=== PATIENT | male | born 1935 | race Caucasian/White ===

== ENCOUNTER 2019-10-12 15:30 | Inpatient (IN) | payer OTHER ==
[~2019-10-12] VITALS: Ht 172.7 cm; Wt 71.7 kg
--- NOTE | 2019-10-12 15:30 | NUR ---
iv line started blood drawn and sent to lab.
--- NOTE | 2019-10-12 15:30 | NUR ---
pt dax caitlin home to er bed 08. per ems report, worsening cough and dyspnea for the past 3 days. no fever endorse. 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 gowned and placed on monitor. stable vitals. awaitingt md barnes.
--- NOTE | 2019-10-12 15:47 | NUR ---
dr espana at bedside for eval.
[2019-10-12 16:05] LABS: BASOPHILS % (AUTO) 0.5 % (0.0-2.0); HEMATOCRIT 44 % (39-51); HEMOGLOBIN 14.2 g/dL (13.5-17.5); LYMPHOCYTES # (AUTO) 0.8 /CMM (0.8-4.8); LYMPHOCYTES % (AUTO) 11.4 % (20.0-44.0); MEAN CORPUSCULAR HGB CONC 32 g/dl (31.0-36.0); MEAN CORPUSCULAR VOLUME 88 fL (80-96); MONOCYTES # (AUTO) 0.8 /CMM (0.1-1.30); MONOCYTES % (AUTO) 11.2 % (2.0-12.0); NEUTROPHILS # (AUTO) 5.2 /CMM (1.8-8.9); NEUTROPHILS % (AUTO) 74.9 % (43.0-81.0); PLATELET COUNT (AUTO) 256 /CMM (150-450); RED BLOOD CELL COUNT(AUTO) 4.96 MIL/uL (4.5-6.0)
[2019-10-12 16:14] LABS: CALCIUM, SERUM 9.2 mg/dL (8.5-10.1); CARBON DIOXIDE 34 mmol/L (21-32); CHLORIDE 99 mmol/L (98-107); CREATININE 0.9 mg/dL (0.6-1.3); GLUCOSE 133 mg/dL (74-106); POTASSIUM 3.9 mmol/L (3.5-5.1); SODIUM SERUM 138 mmol/L (136-145); UREA NITROGEN, BLOOD 24 mg/dL (7-18)
[2019-10-12 16:25] LABS: ALANINE AMINOTRANSFERASE 26 U/L (12-78); ALBUMIN 3.1 g/dL (3.4-5.0); ALKALINE PHOSPHATASE 80 U/L (46-116); ASPARTATE AMINOTRANSFERASE 17 U/L (15-37); BILIRUBIN,DIRECT 0.1 mg/dL (0.0-0.2); BILIRUBIN,TOTAL 0.3 mg/dL (0.2-1.0); TOTAL PROTEIN, SERUM 7.9 g/dL (6.4-8.2)
[2019-10-12 16:26] LABS: ABG BASE EXCESS 2.7 mmol/L; ABG OXYGEN SATURATION 92.6 % (92.0-98.5); ABG PCO2 39.2 mmHg (35.0-45.0); ABG PH 7.451 (7.350-7.450); ABG PO2 64.2 mmHg (75.0-100.0); AaDO2 38.6 mmHg; COHb 0.5 % (0.5-1.5); MetHb 0.3 % (0.0-1.5); O2Hb 91.9 % (94.0-97.0); SITE, ABG Right Radial; VENT MODE, BG ROOM AIR
[2019-10-12 16:35] LABS: C-REACTIVE PROTEIN 12.6 mg/dL (0.0-0.9)
[2019-10-12] MEDS ORDERED: CT SWABBABLE VALVE TRANS SET 1 EA INFUS.SET MC ONE (16:55)
[2019-10-12] MEDS ORDERED: IV NS 0.9% 250 ML IV ONE (16:55)
[2019-10-12] MEDS ORDERED: IOHEXOL-350 100 ML VIAL IV ONE (16:55)
[2019-10-12] MEDS ORDERED: VANCOMYCIN 1 GM in IV D5W 250 ML IV ONE (17:30)
[2019-10-12] MEDS ORDERED: CEFEPIME 1 GM in IV D5W 50 ML IV ONE (17:30)
--- NOTE | 2019-10-12 17:45 | NUR ---
IRIS- DAUGHTER AND A [phone]
--- NOTE | 2019-10-12 17:50 | NUR ---
[facility]ED [facility], AWAITING CALL BACK FROM
[2019-10-12] MEDS ORDERED: LIDOCAINE 2% JEL UROJET 10 ML MM ONE (17:52)
[2019-10-12 18:30] LABS: APPEARANCE,URINE Slightly Cloudy (CLEAR); BILIRUBIN,URINE Negative (NEGATIVE); BLOOD, URINE Large Ery/uL (NEGATIVE); COLOR,URINE Yellow (YELLOW); KETONES,URINE Negative (NEGATIVE); LEUKOCYTE ESTERASE ,URINE Negative (NEGATIVE); NITRITE, URINE Negative (NEGATIVE); PH,URINE 5.5 (5.0-8.0); PROTEIN,URINE 30 mg/dl (NEGATIVE); UGLUCOSE Negative (NEGATIVE); UROBILINOGEN,URINE 0.2 EU/dL (0.2)
[2019-10-12 18:43] LABS: BACTERIA,URINE 1+ /HPF (None Seen); SQUAMOUS EPITHELIAL CELL,UR Few /HPF (None Seen)
[2019-10-12] MEDS ORDERED: AZITHROMYCIN 500 MG in IV D5W 250 ML IV ONE (19:00)
--- NOTE | 2019-10-12 19:15 | NUR ---
daughter dr nasir thurston called. left # [phone]
--- NOTE | 2019-10-12 19:26 | NUR ---
report to [facility] whit julian for adonis.
--- NOTE | 2019-10-12 19:42 | NUR ---
TOOK OVER PT CARE. PT AAOX2. NAME AND PLACEC OF . PLACED ON MONITOR AND PULSE OX. ON 2L NC. SAT 98. VSS. NO ACUTE DISTRESS NOTED.
--- NOTE | 2019-10-12 20:28 | NUR ---
REPORT GIVEN TO BLAYNE ESQUIVEL FOR KUN.
--- NOTE | 2019-10-12 20:54 | NUR ---
PT TRANSFERED PER [facility].
[2019-10-12 21:00] VITALS: BP 125/98
--- NOTE | 2019-10-12 21:00 | NUR ---
RN APOLLO ADMISSION NOTES RECEIVED PT FROM ER VIA [facility] AWAKE BUT A/O X 1 AND FORGET EASILY, PT ON O2 2L VIA NC SPO2 @ 96%, SAFELY TRANSFER FROM [facility] TO BED, HEAD TO TOE ASSESSMENT DONE REDNESS ON BLE NOTED, PATIENT HAVE DRY COUGH CRACKLES ON ALL LOBES NOTED, ADMISSION ASSESSMENT DONE, HOOKED TO TELE MONITOR WITH READING SR 80'S BBB, PUT ON DROPLET ISOLATION FOR R/O COVID PENDING RESULT, SAFETY MEASURE OBSERVED BED ON LOWETS POSITION AND LOCKED SIDE RAILS UP X3 CALL LIGHT WITHIN REACH WILL CONT TO MONITOR THE PT.
[2019-10-12] MEDS: IV NS 0.9% 1,000 ML IV PRN (22:37)
[2019-10-12] MEDS ORDERED: HYDROCODONE/APAP 5/325MG 1 EACH TABLET PO PRN (23:00)
[2019-10-12] MEDS ORDERED: ACETAMINOPHEN 325 MG TABLET PO PRN (23:00)
[2019-10-12] MEDS ORDERED: ZOLPIDEM TARTRATE 5 MG TABLET PO PRN (23:00)
[2019-10-12] MEDS ORDERED: MAGNESIUM HYDROXIDE 30 ML UDC PO PRN (23:00)
[2019-10-12] MEDS ORDERED: ONDANSETRON HCL/PF 4 MG/2 ML VIAL IVP PRN (23:00)
[2019-10-12] MEDS ORDERED: Z GUARD REMEDY 2 OZ OINT TP PRN (23:00)
[2019-10-12] MEDS ORDERED: BUPR100T6 PO (23:37)
[2019-10-12] MEDS ORDERED: METH1TAB PO (23:37)
[2019-10-12] MEDS ORDERED: TIOT18CA3 INH (23:37)
[2019-10-12] MEDS ORDERED: LIDO30CR47 TP (23:37)
[2019-10-12] MEDS ORDERED: ALBU2.5V38 NEB (23:37)
[2019-10-12] MEDS ORDERED: MODAFINIL PO (23:37)
[2019-10-12] MEDS ORDERED: FLUT1DIS5 INH (23:37)
[2019-10-12] MEDS ORDERED: ALBU18HF2 INH (23:37)
[2019-10-12] MEDS ORDERED: VENL37.55 PO (23:37)
[2019-10-12] MEDS ORDERED: CYAN-51 SL (23:37)
[2019-10-12] MEDS ORDERED: LIDO1ADH71 TOP (23:37)
[2019-10-12] MEDS ORDERED: TAMS-12 PO (23:37)
[2019-10-12] MEDS ORDERED: BISO5TAB20 PO (23:37)
[2019-10-13] VITALS: BP 128/70
[2019-10-13 04:00] VITALS: BP 136/71
[2019-10-13 06:51] LABS: CALCIUM, SERUM 9.1 mg/dL (8.5-10.1); CREATININE 0.9 mg/dL (0.6-1.3); MAGNESIUM 2.1 mg/dL (1.8-2.4); PHOSPHORUS 2.8 mg/dL (2.5-4.9); POTASSIUM 3.4 mmol/L (3.5-5.1)
[2019-10-13 07:04] LABS: BASOPHILS % (AUTO) 0.4 % (0.0-2.0); EOSINOPHILS % (AUTO) 2.5 % (0.0-6.0); HEMATOCRIT 41 % (39-51); HEMOGLOBIN 13.2 g/dL (13.5-17.5); LYMPHOCYTES # (AUTO) 0.9 /CMM (0.8-4.8); LYMPHOCYTES % (AUTO) 13.1 % (20.0-44.0); MEAN CORPUSCULAR HGB CONC 32 g/dl (31.0-36.0); MEAN CORPUSCULAR VOLUME 86 fL (80-96); MONOCYTES # (AUTO) 0.7 /CMM (0.1-1.30); MONOCYTES % (AUTO) 10.8 % (2.0-12.0); NEUTROPHILS # (AUTO) 4.8 /CMM (1.8-8.9); NEUTROPHILS % (AUTO) 73.2 % (43.0-81.0); PLATELET COUNT (AUTO) 259 /CMM (150-450); RED BLOOD CELL COUNT(AUTO) 4.79 MIL/uL (4.5-6.0); WHITE BLOOD COUNT (AUTO) 6.5 K/uL (4.3-11.0)
--- NOTE | 2019-10-13 07:12 | NUR ---
RN CLOSING NOTES PT ON STABLE CONDITION NO SIGN AND SYMPTOMS OF RESPIRATORY DISTRESS,ON ROOM AIR SPO2 97%, NO SIGNIFICANT CHANGES ON CONDITION NOTED DROPLET ISOLATION MAINTAINED AND OBSERVED ON TELE MONITOR READING SINUS RHYTHM 80'S BBB, ALL NEEDS ATTENDED, SAFETY MEASURE MAINTAINED, BED ON LOWEST POSSIBLE POSITION AND LOCKED CALL LIGHT WITHIN REACH, WILL ENDORSE TO AM SHIFT NURSE
--- NOTE | 2019-10-13 07:39 | NUR ---
RN OPENING NOTES RECEIVED PATIENT RESTING IN BED COMFORTABLY. HE IS AOX1, FORGETFUL, VERBAL, AND ON BEDREST. HE IS ON 2L OF OXYGEN VIA NC, TOLERATING WELL, NO SOB OR RESP DISTRESS PRESENT. TELE MONITOR SHOWING SR WITH HR AT 91 BPM. SKIN IS INTACT, BLE REDNESS PRESENT. RHAND 22 G IS PATENT AND INTACT, INFUSING NS AT 75 ML/HR. CONTACT AND DROPLET ISO HAVE BEEN IMPLEMENTED AND ENFORCED FOR RULE OUT COVID-19. SAFETY MEASURES HAVE BEEN IMPLEMENTED, CALL LIGHT IS WITHIN REACH, BED IS IN LOWEST AND LOCKED POSITION, SIDE RIALS UP X2, WILL CONTINUE TO MONITOR FOR ANY CHANGES.
[2019-10-13] MEDS: POTASSIUM CL. PREMIX PERIPHER. 50 ML IV SCH ×2 (07:58→09:14)
[2019-10-13 08:00] VITALS: BP 142/70
[2019-10-13] MEDS ORDERED: POTASSIUM CL. PREMIX PERIPHER. 50 ML IV SCH (09:00)
--- NOTE | 2019-10-13 09:45 | NUR ---
RN NOTES DEACON FLYNN NP MADE AWARE THAT MED RECON IS NOT YET COMPLETED.
[2019-10-13] MEDS: GUAIFENESIN LA 600 MG TABLET.SA PO SCH ×2 (10:30→20:27)
[2019-10-13 11:26] LABS: THYROID STIMULATING HORMONE 1.23 uIU/mL (0.358-3.74)
[2019-10-13 12:00] VITALS: BP 136/68
[2019-10-13] MEDS ORDERED: IPRATROPIUM NEB FS 0.5 MG/2.5 ML AMPUL.NEB NEB SCH (15:00)
--- NOTE | 2019-10-13 15:43 | NUR ---
RN NOTES GAVE TRANSFER REPORT TO MCKENNA ESQUIVEL FOR KUN
--- NOTE | 2019-10-13 15:45 | NUR ---
RN NOTES TOOK OVER CARE. PATIENT IN STABLE CONDITION. NO ACUTE DISTRESS NOTED. REPORT GIVEN BY JOSE ESQUIVEL.
[2019-10-13 16:00] VITALS: BP 137/73
--- NOTE | 2019-10-13 16:00 | NUR ---
RN NOTES O2 SATURATION 98% @ 2LPM VIA NASAL CANNULA. NO ACUTE DISTRESS NOTED.
[2019-10-13] MEDS: buPROPion SR 100 MG TABLET.ER PO SCH (18:00)
--- NOTE | 2019-10-13 18:00 | NUR ---
RN NOTES O2 SATURATION 98% @ 2LPM VIA NASAL CANNULA. NO ACUTE DISTRESS NOTED.
[2019-10-13] MEDS: IV NS 0.9% 1,000 ML IV PRN (18:10)
--- NOTE | 2019-10-13 18:49 | NUR ---
RN NOTES PATIENT IN BED ALERT ORIENTED X 1.NO ACUTE DISTRESS NOTED. BREATHING UNLABORED. NEEDS ATTENDED AND ANTICIPATED. KEPT CLEAN DRY AND COMFORTABLE. SAFETY MEASURES IN PLACE. CALL LIGHT WITHIN REACH. WILL ENDORSE TO NIGHT NURSE FOR CONTINUITY OF CARE.
--- NOTE | 2019-10-13 18:56 | NUR ---
RN NOTES IV ACCESS ACCIDENTALLY GOT PULLED OUT. STARTED NEW IV LINE ON RIGHT FOREARM G 22 X 1 ATTEMPT, WITH GOOD BLOOD RETURN.PATENT TOLERATED WELL. SECURED WITH TRANSPARENT DRESSING SIGNED AND DATED.
--- NOTE | 2019-10-13 19:20 | NUR ---
RN OPENING NOTES RECEIVED PATIENT RESTING IN BED COMFORTABLY. HE IS AOX1, FORGETFUL, VERBAL, AND ON BEDREST. HE IS ON 2L OF OXYGEN VIA NC, TOLERATING WELL, NO SOB OR RESP DISTRESS PRESENT. TELE MONITOR SHOWING SR WITH HR AT 91 BPM. SKIN IS INTACT, BLE REDNESS PRESENT. RFA 22 G IS PATENT AND INTACT, INFUSING NS AT 75 ML/HR. CONTACT AND DROPLET ISO HAVE BEEN IMPLEMENTED AND ENFORCED FOR RULE OUT COVID-19. SAFETY MEASURES HAVE BEEN IMPLEMENTED, CALL LIGHT IS WITHIN REACH, BED IS IN LOWEST AND LOCKED POSITION, SIDE RIALS UP X2, WILL CONTINUE TO MONITOR FOR ANY CHANGES.
[2019-10-13 20:00] VITALS: BP 143/79
[2019-10-14] VITALS: BP 153/71
[2019-10-14 04:00] VITALS: BP 137/66
[2019-10-14] MEDS: IV NS 0.9% 1,000 ML IV PRN (06:26)
--- NOTE | 2019-10-14 06:56 | NUR ---
RN CLOSING NOTES PT ON STABLE CONDITION NO SIGN AND SYMPTOMS OF RESPIRATORY DISTRESS,ON ROOM AIR SPO2 97%, NO SIGNIFICANT CHANGES ON CONDITION NOTED DROPLET ISOLATION MAINTAINED AND OBSERVED ON TELE MONITOR READING SINUS TACHY 100'S BBB, ALL NEEDS ATTENDED, SAFETY MEASURE MAINTAINED, BED ON LOWEST POSSIBLE POSITION AND LOCKED CALL LIGHT WITHIN REACH, WILL ENDORSE TO AM SHIFT NURSE
[2019-10-14 07:02] LABS: BASOPHILS % (AUTO) 0.5 % (0.0-2.0); EOSINOPHILS % (AUTO) 3.7 % (0.0-6.0); HEMATOCRIT 45 % (39-51); HEMOGLOBIN 14.6 g/dL (13.5-17.5); LYMPHOCYTES # (AUTO) 0.9 /CMM (0.8-4.8); LYMPHOCYTES % (AUTO) 13.3 % (20.0-44.0); MEAN CORPUSCULAR HGB CONC 33 g/dl (31.0-36.0); MEAN CORPUSCULAR VOLUME 87 fL (80-96); MONOCYTES # (AUTO) 0.5 /CMM (0.1-1.30); MONOCYTES % (AUTO) 8.1 % (2.0-12.0); NEUTROPHILS % (AUTO) 74.4 % (43.0-81.0); PLATELET COUNT (AUTO) 282 /CMM (150-450); RED BLOOD CELL COUNT(AUTO) 5.17 MIL/uL (4.5-6.0); WHITE BLOOD COUNT (AUTO) 6.7 K/uL (4.3-11.0)
[2019-10-14 07:15] LABS: CALCIUM, SERUM 8.9 mg/dL (8.5-10.1); CREATININE 0.7 mg/dL (0.6-1.3); PHOSPHORUS 2.7 mg/dL (2.5-4.9); POTASSIUM 3.7 mmol/L (3.5-5.1)
--- NOTE | 2019-10-14 07:30 | NUR ---
RN NOTES RECEIVED PATIENT ASLEEP IN BED, AROUSABLE TO VERBAL AND TACTILE STIMULI. HOB ELEVATED. NO SOB. SPO2 98% ROOM AIR. BED IN LOWEST POSITION, LOCKED. BED ALARM ON. BED SIDERAILS UP X2. CALL LIGHT WITHIN REACH. FREQUENT VISUAL CHECK DONE.
[2019-10-14 08:00] VITALS: BP 124/76
[2019-10-14] MEDS: GUAIFENESIN LA 600 MG TABLET.SA PO SCH (08:30)
[2019-10-14 08:49] LABS: ABG BASE EXCESS 1.3 mmol/L; ABG OXYGEN SATURATION 93.8 % (92.0-98.5); ABG PCO2 41.7 mmHg (35.0-45.0); ABG PH 7.414 (7.350-7.450); ABG PO2 68.2 mmHg (75.0-100.0); AaDO2 31.6 mmHg; MetHb 0.2 % (0.0-1.5); O2Hb 92.7 % (94.0-97.0); SITE, ABG Left Radial; VENT MODE, BG ROOM AIR
[2019-10-14] MEDS ORDERED: BISOPROLOL FUMARATE 5 MG TABLET PO SCH (09:00)
[2019-10-14] MEDS ORDERED: CYANOCOBALAMIN 500 MCG TABLET PO SCH (09:00)
[2019-10-14] MEDS ORDERED: TAMSULOSIN 0.4 MG CAP.SR.24H PO SCH (09:00)
[2019-10-14] MEDS: buPROPion SR 100 MG TABLET.ER PO SCH ×2 (09:04→16:40)
[2019-10-14 12:00] VITALS: BP 133/80
--- NOTE | 2019-10-14 12:10 | NUR ---
RN NOTES PATIENT ATE 20% OF MEAL FOR LUNCH. PATIENT DID NOT LIKE FOOD. NO SWALLOWING PROBLEM OBSERVED DURING MEAL AND LIQUID INTAKE. PATIENT MAGI THIN LIQUID WELL. ON ROOM AIR WITH SPO2 96%. OBSERVED PATIENT COUGHING UP SECRETIONS AND SWALLOWING IT BACK UP AGAIN AND CLEARING THROAT.
--- NOTE | 2019-10-14 14:31 | NUR ---
RN NOTES RECEIVED COVID-19 RESULT: NEGATIVE, RELAYED TO DR. FLYNN.
[2019-10-14 16:00] VITALS: BP 134/76
[2019-10-14] MEDS ORDERED: AMOXICILLIN TRIHYDRATE 250 MG CAPSULE PO SCH (18:00)
--- NOTE | 2019-10-14 18:00 | NUR ---
RN NOTES CALLED [facility] FROM [facility] [phone] AND SAID THAT PATIENT WILL BE TRANSFERRED TODAY TO [facility]. PER [facility] THEY WILL CALL BACK WITH MORE INFO REGARDING ETA.
[2019-10-14] MEDS ORDERED: AMOX250C PO (18:05)
[2019-10-14] MEDS ORDERED: GUAI600T53 PO (18:05)
--- NOTE | 2019-10-14 19:05 | NUR ---
RN NOTE RECEIVED PATIENT IN BED RESTING WITH HOB ELEVATED, WATCHING TV. BREATHING EVEN AND NON LABORED. NO SOB NOTED. O2 SAT 96% ROOM AIR. A&O X2. ABLE TO MAKE NEEDS KNOWN. IN NO APPARENT DISTRESS NOTED. WILL CONTINUE TO MONITOR.
--- NOTE | 2019-10-14 19:31 | NUR ---
RN NOTES PATIENT RESTING COMFORTABLY IN BED. HOB ELEVATED. NO S/S OF RESPIRATORY DISTRESS. SPO2 97% ROOM AIR. DENIES ANY C/O PAIN NOR DISCOMFORT AT THIS TIME. LEFT FA # 22 INTACT AND PATENT INFUSING NS @ 75ML/HR MAGI WELL. BED IN LOWEST POSITION, LOCKED. BED ALARM ON. BED SIDERAILS UP X2. CALL LIGHT WITHIN REACH. FREQUENT VISUAL CHECK DONE. IN NO APPARENT DISTRESS.
--- NOTE | 2019-10-14 20:05 | NUR ---
RN NOTE PATIENT DISCHARGED TO [facility] AROUND THIS TIME. PER MARY GRACE OF [facility], ACCEPTING PHYSICIAN AT [place] WILL BE DR. ARTHUR ON MED SURG FLOOR ROOM #[id number]. PATIENT LEFT IN STABLE CONDITION VIA GURNEY. PHOTO OF BLE REDNESS TAKEN AND PLACED IN CHART. GAVE REPORT AND BELONGINGS TO [facility]. BELONGINGS DOCUMENTATION SIGNED. GAVE REPORT TO PEBBLES ESQUIVEL OF [facility]
--- NOTE | 2019-10-14 20:30 | NUR ---
RN NOTE DAUGHTER GONZALEZ MADE AWARE OF TRANSFER TO [facility].
== END 2019-10-14 21:55 | disposition short-term general hospital (02) | DRG 193 ==
LOC: ER 15:30 → TELE-TD 20:16 → TELE1 10-13 10:54
PROVIDERS: ADMIT Nurse Practitioner Acute Care; ATTEND Nurse Practitioner Acute Care
DX: J15.9 Unspecified bacterial pneumonia (principal); J96.01 Acute respiratory failure with hypoxia; G93.41 Metabolic encephalopathy; J90 Pleural effusion, not elsewhere classified; E44.1 Mild protein-calorie malnutrition; N17.9 Acute kidney failure, unspecified; E86.0 Dehydration; I10 Essential (primary) hypertension; E87.6 Hypokalemia; N40.0 Benign prostatic hyperplasia without lower urinary tract symptoms; R13.10 Dysphagia, unspecified; E88.09 Other disorders of plasma-protein metabolism, not elsewhere classified; Z68.24 Body mass index [BMI] 24.0-24.9, adult; G47.33 Obstructive sleep apnea (adult) (pediatric); E66.01 Morbid (severe) obesity due to excess calories; R91.8 Other nonspecific abnormal finding of lung field; G30.9 Alzheimer's disease, unspecified; F02.80 Dementia in other diseases classified elsewhere, unspecified severity, without behavioral disturbance, psychotic disturbance, mood disturbance, and anxiety; J44.9 Chronic obstructive pulmonary disease, unspecified; J92.0 Pleural plaque with presence of asbestos
CPT/HCPCS: 36415; 36600; 71045-TC; 80048-TC; 80061-TC; 80076-TC; 81000-TC; 82728-TC; 83605-TC; 83615-TC; 83735-TC; 84100-TC; 84439-TC; 84443-TC; 84484-TC; 85025-TC; 85730-TC; 86140-TC; 87040-TC; 87081-TC; 87086-TC; 90935-TC; 92526; 92611-TC; 93307-TC; G0378; J0456; J0692; J3370; J3480; J3490; J7030; J7050; J7060; Q9967